=== PATIENT | male | born 1990 | race Caucasian/White ===

== ENCOUNTER 2017-11-21 02:11 | Emergency (ER) | payer SELFPAY ==
[~2017-11-21] VITALS: Ht 172.7 cm; Wt 67.2 kg
[2017-11-21 02:20] VITALS: BP 144/70
--- NOTE | 2017-11-21 02:39 | NUR ---
PT CAME IN C/O LEFT FLANK PAIN 02/01 STARTED LAST WEDNESDAY AND WENT TO SEE HIS PRIMARY AND WAS TOLD IT WAS CAUSED BY VIRUS AND TOLD HIM TO REST AND COME BACK IF SYSMPTOMS WORSEN. NO PRESCRIPTION WAS GIVEN FROM PRIMARY THAT TIME. PT STATED THAT HE STARTED TAKING ANTIBIOTIC X 4 DAYS WITHOUT PRESCRIPTION. A&O X4. RR EVEN AND UNLABORED. AFEBRILE. BOWEL SOUND HEARD FROM ALL 4 QUAD. DENIES ANY MEDICAL HISTORY. ER MD MADE AWARE.
--- NOTE | 2017-11-21 03:11 | NUR ---
PT TAKEN TO CT SCAN VIA WC AT THIS TIME.
--- NOTE | 2017-11-21 03:22 | NUR ---
PT CAME BACK FROM CT SCAN WITH STABLE CONDITION. PT TRASNFERED FROM WC TO BED BY HIMSELF WITHOUT ANY DIFFICULTIES.
--- NOTE | 2017-11-21 03:30 | NUR ---
LABS COLLECTED ORDERED.
[2017-11-21 03:38] LABS: APPEARANCE,URINE CLEAR (CLEAR); BILIRUBIN,URINE NEGATIVE (NEGATIVE); BLOOD, URINE NEGATIVE (NEGATIVE); COLOR,URINE YELLOW (YELLOW); LEUKOCYTE ESTERASE ,URINE NEGATIVE (NEGATIVE); NITRITE, URINE NEGATIVE (NEGATIVE); PH,URINE 5.5 (5.0-9.0); UGLUCOSE NEGATIVE (NEGATIVE)
[2017-11-21 03:41] LABS: BASOPHILS % (AUTO) 0.8 % (0.0-2.0); EOSINOPHILS # (AUTO) 0.2 K/uL (0-0.4); EOSINOPHILS % (AUTO) 3.6 % (0.0-4.0); HEMATOCRIT 46.4 % (36-52); HEMOGLOBIN 15.9 g/dL (12.0-18.0); LYMPHOCYTES # (AUTO) 2.1 K/uL (2.0-11.5); LYMPHOCYTES % (AUTO) 33.3 % (20.5-51.1); MEAN CORPUSCULAR HEMOGLOBIN 31 pg (27-31); MEAN CORPUSCULAR HGB CONC 34 g/dL (33-37); MEAN CORPUSCULAR VOLUME 90.3 fL (80-94); MONOCYTES # (AUTO) 0.6 K/uL (0.8-1.0); NEUTROPHILS # (AUTO) 3.4 K/uL (1.8-7.7); NEUTROPHILS % (AUTO) 53.3 % (42.2-75.2); PLATELET COUNT (AUTO) 154 K/uL (140-450); RED BLOOD CELL COUNT(AUTO) 5.14 MIL/uL (4.20-6.10); WHITE BLOOD COUNT (AUTO) 6.3 K/uL (4.8-10.8)
[2017-11-21 03:47] LABS: RBC,URINE 0-5 (RARE) /HPF (0-5); WBC,URINE 0-5 (RARE) /HPF (0-5)
[2017-11-21 03:53] LABS: ALBUMIN 4.6 g/dL (3.4-5.0); ANION GAP 12.2 (8-16); CARBON DIOXIDE 29.3 mmol/L (21-32); CREATININE 1.1 mg/dL (0.7-1.3); POTASSIUM 3.5 mmol/L (3.5-5.1)
[2017-11-21 04:40] VITALS: BP 124/76
--- NOTE | 2017-11-21 04:40 | NUR ---
Patient discharged with v/s stable. Written and verbal after care instructions given and explained. Patient alert, oriented and verbalized understanding of instructions. Ambulatory with steady gait. All questions addressed prior to discharge. ID band removed. Patient advised to follow up with PMD. Rx of MOM given. Patient educated on indication of medication including possible reaction and side effects. Opportunity to ask questions provided and answered.
== END 2017-11-21 04:40 | disposition home or self-care (01) ==
LOC: MED 02:11
DX: K59.00 Constipation, unspecified (principal)
CPT/HCPCS: 36415; 80053; 81001; 85025; 99285